=== PATIENT | female | born 1990 | race Caucasian/White ===

== ENCOUNTER 2016-06-19 20:15 | Emergency (ER) | payer BC, OTHER ==
[~2016-06-19] VITALS: Ht 160 cm; Wt 42.8 kg
[~2016-06-19 20:15] MED LIST: ACET-749 PO; MTR600X PO; PRENTAB26 PO
[2016-06-19 21:04] VITALS: TEMP 36.9; Ht 160 cm; Wt 42.8 kg
[2016-06-19] MEDS ORDERED: SODIUM CHLORIDE 0.9% 1000ML 1,000 ML IV STA (21:32)
[2016-06-19] MEDS ORDERED: PROMETHAZINE HCL INJ 25 MG in SODIUM CHLORIDE 0.9% 50ML 50 ML IV STA (21:32)
[2016-06-19 21:48] LABS: BASO % 0.2 %; BASO ABS # 0.03 K/uL (0-0.2); COMPLETE YES; EOS % 0.2 %; HEMATOCRIT 41.5 % (37-47); IG% 0.2 %; LYMPH ABS # 2.44 K/uL (1.2-3.4); MEAN CORPUSCULAR HEMOGLOBIN 30.8 pg (25-34); MEAN CORPUSCULAR HGB CONC 34.2 g/dl (32-36); MEAN PLATELET VOLUME 9.4 fL (7.4-10.4); MONO % 4.2 %; NEUT % 75.2 %; PLATELET COUNT 341 K/uL (130-400); RED BLOOD COUNT 4.61 M/uL (4.2-5.4); WHITE BLOOD COUNT 12.22 K/uL (4.8-10.8)
[2016-06-19 21:58] LABS: MANUAL MICROSCOPIC REQUIRED? NO; REVIEW REQ? NO; URINE APPEARANCE CLEAR (CLEAR); URINE BILIRUBIN NEG (NEG); URINE COLOR DK YELLOW; URINE EPITHELIAL CELL AUTO >30 /lpf (0-5); URINE NITRITE NEG (NEG); URINE PH 5.5 (4.5-7.5); URINE SPECIFIC GRAVITY 1.022 (1.000-1.030); UROBILINOGEN NEG (NEG)
[2016-06-19 22:05] LABS: BUN/CREATININE RATIO 16.3 (10-20); CALCIUM 9.5 mg/dl (8.5-10.1); CREATININE 0.76 mg/dl (0.60-1.20); POTASSIUM 3.5 mmol/L (3.5-5.1)
[2016-06-19] MEDS ORDERED: ANT25HP PO (22:08)
[2016-06-19] MEDS ORDERED: TRAZ100T29 PO (22:09)
[2016-06-19] MEDS ORDERED: PRLSR20 PO (22:09)
[2016-06-19] MEDS ORDERED: ONDA8TAB6 PO (22:10)
[2016-06-19] MEDS ORDERED: EPP3/2 IM (22:11)
[2016-06-19 22:12] LABS: BENZODIAZEPINE, URINE NEG (NEG); COCAINE,URINE NEG (NEG); PHENCYCLIDINE, URINE NEG (NEG)
--- NOTE | 2016-06-19 22:20 | DIAGNOSTIC IMAGING REPORT ---
CT OF THE HEAD WITHOUT CONTRAST CLINICAL HISTORY: Vertigo. COMPARISON STUDY: No previous studies for comparison. CT DOSE: 537.48 mGy.cm TECHNIQUE: Helical axial images of the head were obtained without IV contrast. Automated exposure control was utilized for the study. FINDINGS: No acute intracranial hemorrhage, midline shift or mass effect is present. Ventricular system is normal. Basilar cisterns are patent. There are no extra-axial collections. Hamilton-white differentiation is maintained. There are no findings to suggest acute dural sinus thrombosis or acute territorial infarct. Visualized portions of the sinuses and mastoid air cells are clear. There are no significant calvarial abnormalities. IMPRESSION: No acute intracranial findings. Electronically signed by: Rinku Ballesteros M.D. 06/19/2016 10:18 PM Dictated Date/Time: 06/19/2016 10:16 PM
--- NOTE | 2016-06-19 22:34 | EMERGENCY ROOM VISIT NOTE ---
History Report prepared by Alexus: Chelsie Bob Under the Supervision of: Dr. Patrice Cancino M.D. First contact with patient: 21:25 Chief Complaint: VOMITING Stated Complaint: VOMITING,SHAKING Nursing Triage Summary: Patient has been vomiting today, which is an ongoing problem for this patient. Patient has a hx of vertigo which has caused her to fall several times in the last few months, notes that she did hit her head. Patient has had a decreased appetite and when she does eat she throws it up. Patient seems very drowsy and out of it in triage. History of Present Illness The patient is a 25 year old female who presents to the Emergency Room with complaints of persistent vomiting that started earlier today. The patient has a history of vertigo, which has caused her to fall several times in the past. She states that she is dizzy now to the point of being nauseous. She took her Antivert this morning. She is also experiencing black spots in her vision and feels like she is going to experience syncope. The patient denies any chance of . She states that she went to see her PCP earlier today. Source of History: patient Onset: earlier today Quality: other (vomiting) Timing: other (persistent) Associated Symptoms: + nausea, + vomiting Note: dizziness, black spots in vision Review of Systems See HPI for pertinent positives & negatives. A total of 10 systems reviewed and were otherwise negative. Past Medical & Surgical Medical Problems: (1) Avulsion of skin of finger (2) Gestation period, 25 weeks (3) Subchorionic hematoma (4) Vaginal bleeding in (5) Vaginal bleeding in Family History No pertinent family history Social History Smoking Status: Current Every Day Smoker Alcohol Use: none Drug Use: none Marital Status: single Housing Status: lives with family Current/Historical Medications Scheduled Epinephrine (Epipen), 0.3 MG IM UD Meclizine HCl (Meclizine HCl), 50 MG PO DAILY Omeprazole (Prilosec), 20 MG PO DAILY Ondasetron Odt (Zofran Odt), 4 MG SL Q6H Trazodone Hcl (Trazodone), 100 MG PO HS Scheduled PRN Ondansetron Hcl (Zofran), 8 MG PO Q8 PRN for Nausea Allergies Coded Allergies: Grass (Verified Allergy, Severe, throat swelling, 07/10/14) Dairy (Verified Allergy, Mild, organs swell, 07/10/14) per patient Uncoded Allergies: APPLE,ENEDINA (Allergy, Severe, " THROAT SWELLS", "HIVES", 06/19/16) CARROT,CELERY,BROCCOLI (Allergy, Severe, "THROAT SWELLS", "HIVES", 06/19/16) Physical Exam Vital Signs Date Time Temp Pulse Resp B/P Pulse Ox O2 Delivery O2 Flow Rate FiO2 06/20/16 00:06 80 18 109/65 98 06/19/16 22:21 72 16 118/71 98 Room Air 06/19/16 21:04 36.9 68 18 113/74 97 Room Air Physical Exam GENERAL: Patient is a healthy-appearing well-nourished female. Patient is falling asleep on exam. HEAD: Normocephalic atraumatic EYES: Ocular movements intact pupils equal and react to light OROPHARYNX mucous membranes are moist no exudates present no erythema or edema present NECK: Supple no nuchal rigidity CHEST: Good equal expansion LUNGS: Clear and equal to auscultation CARDIAC: Normal S1 and S2 ABDOMEN: Soft nontender no guarding BACK: No CVA tenderness EXTREMITIES: Multiple superficial scratches on arms noo pain upon palpation normal muscle strength in all groups no clubbing cyanosis or edema NEURO: Patient is following commands is answering questions appropriately. Alert and oriented x3 Cranial Nerves 2-12 grossly intact Medical Decision & Procedures ER Provider Diagnostic Interpretation: CT results as stated below per my review and radiologist interpretation: CT OF THE HEAD WITHOUT CONTRAST IMPRESSION: No acute intracranial findings. Electronically signed by: Rinku Ballesteros M.D. 06/19/2016 10:18 PM Dictated Date/Time: 06/19/2016 10:16 PM Laboratory Results 06/19/16 21:35 Red Blood Count 4.61, Mean Corpuscular Volume 90.0, Mean Corpuscular Hemoglobin 30.8, Mean Corpuscular Hemoglobin Concent 34.2, Mean Platelet Volume 9.4, Neutrophils (%) (Auto) 75.2, Lymphocytes (%) (Auto) 20.0, Monocytes (%) (Auto) 4.2, Eosinophils (%) (Auto) 0.2, Basophils (%) (Auto) 0.2, Neutrophils # (Auto) 9.20, Lymphocytes # (Auto) 2.44, Monocytes # (Auto) 0.51, Eosinophils # (Auto) 0.02, Basophils # (Auto) 0.03 06/19/16 21:35 Test 06/19/16 21:35 06/19/16 21:43 White Blood Count 12.22 K/uL (4.8-10.8) Red Blood Count 4.61 M/uL (4.2-5.4) Hemoglobin 14.2 g/dL (12.0-16.0) Hematocrit 41.5 % (37-47) Mean Corpuscular Volume 90.0 fL (80-100) Mean Corpuscular Hemoglobin 30.8 pg (25-34) Mean Corpuscular Hemoglobin Concent 34.2 g/dl (32-36) Platelet Count 341 K/uL (130-400) Mean Platelet Volume 9.4 fL (7.4-10.4) Neutrophils (%) (Auto) 75.2 % Lymphocytes (%) (Auto) 20.0 % Monocytes (%) (Auto) 4.2 % Eosinophils (%) (Auto) 0.2 % Basophils (%) (Auto) 0.2 % Neutrophils # (Auto) 9.20 K/uL (1.4-6.5) Lymphocytes # (Auto) 2.44 K/uL (1.2-3.4) Monocytes # (Auto) 0.51 K/uL (0.11-0.59) Eosinophils # (Auto) 0.02 K/uL (0-0.5) Basophils # (Auto) 0.03 K/uL (0-0.2) RDW Standard Deviation 47.8 fL (36.4-46.3) RDW Coefficient of Variation 14.5 % (11.5-14.5) Immature Granulocyte % (Auto) 0.2 % Immature Granulocyte # (Auto) 0.02 K/uL (0.00-0.02) Anion Gap 9.0 mmol/L (3-11) Est Creatinine Clear Calc Drug Dose 77.8 ml/min Estimated GFR () 128.1 Estimated GFR (Non- 110.6 BUN/Creatinine Ratio 16.3 (10-20) Calcium Level 9.5 mg/dl (8.5-10.1) Total Bilirubin 0.5 mg/dl (0.2-1) Direct Bilirubin 0.2 mg/dl (0-0.2) Aspartate Amino Transf (AST/SGOT) 16 U/L (15-37) Alanine Aminotransferase (ALT/SGPT) 23 U/L (12-78) Alkaline Phosphatase 55 U/L (45-117) Total Protein 7.8 gm/dl (6.4-8.2) Albumin 4.2 gm/dl (3.4-5.0) Lipase 73 U/L (73-393) Urine Color DK YELLOW Urine Appearance CLEAR (CLEAR) Urine pH 5.5 (4.5-7.5) Urine Specific [place] 1.022 (1.000-1.030) Urine Protein NEG (NEG) Urine Glucose (UA) NEG (NEG) Urine Ketones TRACE (NEG) Urine Occult Blood 1+ (NEG) Urine Nitrite NEG (NEG) Urine Bilirubin NEG (NEG) Urine Urobilinogen NEG (NEG) Urine Leukocyte Esterase NEG (NEG) Urine WBC (Auto) 1-5 /hpf (0-5) Urine RBC (Auto) 10-30 /hpf (0-4) Urine Hyaline Casts (Auto) 5-10 /lpf (0-5) Urine Epithelial Cells (Auto) >30 /lpf (0-5) Urine Bacteria (Auto) 2+ (NEG) Urine Opiates Screen NEG (NEG) Urine Methadone, Qualitative NEG (NEG) Urine Barbiturates NEG (NEG) Urine Phencyclidine (PCP) Level NEG (NEG) Ur Amphetamine/Methamphetamine NEG (NEG) MDMA (Ecstasy) Screen NEG (NEG) Urine Benzodiazepines Screen NEG (NEG) Urine Cocaine Metabolite NEG (NEG) Urine Marijuana (THC) POS (NEG) Labs reviewed by ED physician. Medications Administered Medications (Trade) Dose Ordered Sig/Harley Route Start Time Stop Time Status Last Admin Dose Admin Sodium Chloride 1,000 ml @ 999 mls/hr Q1H1M STAT IV 06/19/16 21:32 06/19/16 22:32 DC 06/19/16 21:50 999 MLS/HR Promethazine HCl/ Sodium Chloride (Phenergan Inj/ Nss 50ml) 51 ml @ 204 mls/hr NOW STAT IV 06/19/16 21:32 06/19/16 21:46 DC 06/19/16 21:56 204 MLS/HR Ondansetron HCl (ZOFRAN ODT 4MG Home Pack) 1 homepack UD ONCE PO 06/20/16 00:00 06/20/16 00:01 DC 06/20/16 00:00 1 [facility] ED Course 2126: Past medical records reviewed. The patient was evaluated in room A2. A complete history and physical examination was performed. 2131: Ordered Promethazine HCl 25 mg/Sodium Chloride 51 ml @ 204 mls/hr IV, Sodium Chloride 1000 ml @ 999 mls/hr IV 2302: I reassessed the patient. They are going to see if she can keep Gatorade down. 0: Upon reexamination the patient is doing well. I discussed results and treatment plan with the patient. She verbalizes agreement and understanding. The patient is ready for discharge. 0000: Ordered Ondansetron HCl 1 homepack PO Medical Decision Differential diagnosis: Etiologies such as gastroenteritis, food borne illness, infections, appendicitis , diverticulitis, inflammatory bowel disease, obstruction, GI bleed, biliary pathology, as well as others were entertained. This is a 25-year-old female who presents emergency department complaining of vertigo as well as nausea. Upon arrival to the emergency department the patient does not appear to be in any acute distress. She was given Phenergan in the emergency department and she was able to keep down Gatorade. I believe the patient as well as to be discharged home so she was given Zofran. She does have slight elevation in her white blood count however is nontoxic in appearance. Impression Primary Impression: Vomiting Scribe Attestation The scribe's documentation has been prepared under my direction and personally reviewed by me in its entirety. I confirm that the note above accurately reflects all work, treatment, procedures, and medical decision making performed by me. Departure Information Dispostion Home / Self-Care Prescriptions Ondasetron Odt (ZOFRAN ODT) 4 Mg Tab 4 MG SL Q6H for Nausea, #6 TAB Prov: Patrice Cancino MD 06/19/16 Referrals No Doctor, Assigned (PCP) Forms HOME CARE DOCUMENTATION FORM, IMPORTANT VISIT INFORMATION Patient Instructions ED Diet Vomiting Diarrhea, My [facility], Vomit Diarrhea Self Care, Vomiting - [facility] Additional Instructions Follow up with DR Rodas's office for vertigo You have been examined and treated today on an emergency basis only. This is not a substitute for, or an effort to provide, complete comprehensive medical care. It is impossible to recognize and treat all injuries or illnesses in a single emergency department visit. It is therefore important that you follow up closely with your PCP. Call as soon as possible for an appointment. Thank you for your time and consideration. I look forward to speaking with you again soon. Please don't hesitate to call us if you have any questions. Problem Qualifiers Primary Impression: Vomiting Vomiting type: unspecified Vomiting Intractability: non-intractable Nausea presence: without nausea Qualified Codes: R11.11 - Vomiting without nausea
[2016-06-19] MEDS ORDERED: ONDA4TAB10 SL (23:52)
[2016-06-20] MEDS ORDERED: ONDANSETRON HOME PACK 4MG OD TAB PO ONE
[2016-06-20 00:06] VITALS: BP 109/65; PULSE 80; O2SAT 98
== END 2016-06-20 00:07 | disposition home or self-care (01) ==
LOC: C.EDB 20:16 → C.EDA 06-20 00:07
DX: R11.11 Vomiting without nausea (principal); R42 Dizziness and giddiness; F17.200 Nicotine dependence, unspecified, uncomplicated